=== PATIENT | female | born 1985 | race Caucasian/White ===

== ENCOUNTER → 2016-08-02 | Outpatient (REF) | payer BC, SELFPAY ==
[~2016-08-02] MED LIST: CLEO300C2 PO; LEVA500T PO; NORCOTAB PO
== END ==
LOC: M LAB REF 16:46
PROVIDERS: ATTEND Obstetrics & Gynecology
DX: Z12.4 Encounter for screening for malignant neoplasm of cervix (principal)
CPT/HCPCS: 87491; 87591; G0123

== ENCOUNTER → 2016-09-09 | Outpatient (REF) | payer BC | LOC: M SFHCLERA 11:11 | PROVIDERS: ATTEND Physician Assistant | DX: R30.0 Dysuria (principal) ==

== ENCOUNTER → 2016-12-20 | Outpatient (REF) | payer BC, MEDICAID ==
[~2016-12-20] MED LIST changes: +LEVA1TAB2 PO; -LEVA500T PO
== END ==
LOC: M LAB REF 13:05
PROVIDERS: ATTEND Obstetrics & Gynecology
DX: R30.0 Dysuria (principal)

== ENCOUNTER → 2017-03-01 | Outpatient (CLI) | payer BC, MEDICAID ==
[2017-03-03 11:21] LABS: HEPATITIS B SURFACE ANTIBODY POSITIVE (POSITIVE)
== END ==
LOC: M SMT 14:05
PROVIDERS: ATTEND Specialist
DX: Z20.2 Contact with and (suspected) exposure to infections with a predominantly sexual mode of transmission (principal)

== ENCOUNTER → 2017-03-01 | Outpatient (REF) | payer BC, MEDICAID, MEDICARE | LOC: M LAB REF 17:24 | PROVIDERS: ATTEND Specialist | DX: Z11.3 Encounter for screening for infections with a predominantly sexual mode of transmission (principal) ==

== ENCOUNTER → 2017-07-18 | Outpatient (REF) | payer BC, MEDICAID ==
[2017-07-18 23:16] LABS: CHLAMYDIA DNA AMPLIFICATION POSITIVE (NEGATIVE); GC DNA AMPLIFICATION NEGATIVE (NEGATIVE)
== END ==
LOC: M LAB REF 17:09
DX: Z20.2 Contact with and (suspected) exposure to infections with a predominantly sexual mode of transmission (principal)
CPT/HCPCS: 87591

== ENCOUNTER → 2017-08-07 | Outpatient (REF) | payer BC, MEDICAID | LOC: M LAB REF 16:44 | DX: R30.0 Dysuria (principal) | CPT/HCPCS: 87086 ==

== ENCOUNTER → 2017-08-31 | Outpatient (REF) | payer BC, MEDICAID ==
[2017-08-31 15:08] LABS: CHLAMYDIA DNA AMPLIFICATION NEGATIVE (NEGATIVE); GC DNA AMPLIFICATION NEGATIVE (NEGATIVE)
== END ==
LOC: M LAB REF 12:51
DX: Z11.3 Encounter for screening for infections with a predominantly sexual mode of transmission (principal)
CPT/HCPCS: 87591